=== PATIENT | female | born 1975 | race Caucasian/White ===

== ENCOUNTER 2017-01-16 02:45 | Observation (INO) | payer MEDICAID ==
[~2017-01-16 02:45] MED LIST: METH100I IJ
[2017-01-16] MEDS ORDERED: LACTATED RINGER'S 1,000 ML IV ONE (03:48)
[2017-01-16] MEDS ORDERED: LACTATED RINGER'S 1,000 ML IV SCH (03:48)
[2017-01-16] MEDS ORDERED: TERBUTALINE SULFATE 1 MG/ML 1ML VIAL SC ONE (03:53)
[2017-01-16] MEDS ORDERED: TERBUTALINE SULFATE 1 MG/ML 1ML VIAL SC SCH (04:00)
== END 2017-01-16 04:22 | disposition left against medical advice (07) | DRG 566 ==
LOC: LDRP 02:45
PROVIDERS: ADMIT Specialist; ATTEND Specialist
DX: O62.9 Abnormality of forces of labor, unspecified (principal); O26.893 Other specified pregnancy related conditions, third trimester; O21.2 Late vomiting of pregnancy; R10.9 Unspecified abdominal pain; O09.523 Supervision of elderly multigravida, third trimester; Z3A.39 39 weeks gestation of pregnancy
CPT/HCPCS: 59025; G0378; G0434

== ENCOUNTER 2017-03-01 13:43 | Emergency (ER) | payer MEDICAID ==
[~2017-03-01] VITALS: Ht 154.9 cm; Wt 40.8 kg
[2017-03-01 15:58] LABS: Basophils # (auto) 0 uL; Basophils % (auto) 0.2 % (0.0-2.0); DEFINITIVE VIEW TRANSMISSION; Eosinophils # (auto) 0 uL; Hematocrit 36.8 % (36.0-46.0); Hemoglobin 12.3 g/dL (12.2-16.2); Lymphocytes # (auto) 1.1 uL; Lymphocytes % (auto) 10.1 % (10.0-50.0); Mean Corpuscular Hemoglobin 26.8 pg (28.0-32.0); Mean Corpuscular Hgb Conc. 33.3 g/dL (32.0-36.0); Mean Corpuscular Volume 80.3 fL (80.0-100.0); Mean Platelet Volume 8.3 fL (7.4-10.4); Monocytes # (auto) 1.7 uL; Monocytes % (auto) 15.6 % (0.0-12.0); Neutrophils % (auto) 74.1 % (37.0-80.0); Platelet Count (auto) 323 10^3/uL (140-450); Red Cell Distribution Width 16.9 % (11.6-16.0); White Blood Cell 10.9 10^3/uL (4.4-10.8)
[2017-03-01 16:22] LABS: Urine Bilirubin Negative (Negative); Urine Blood 2+ /uL (Negative); Urine Color Yellow (Yellow); Urine Glucose Normal (Normal); Urine Hyaline Cast FEW /lpf (0 - 2); Urine Ketone Negative (Negative); Urine Mucus FEW (None Seen); Urine Nitrite Negative (Negative); Urine RBC 22 /hpf (0 - 4); Urine Squamous Epithelial Cell MOD /hpf (<5); Urine WBC Clumps PRESENT /hpf (None Seen)
[2017-03-01] MEDS ORDERED: SODIUM CHLORIDE 0.9% 1,000 ML IV ONE (17:45)
[2017-03-01] MEDS ORDERED: ONDANSETRON HCL 4 MG/2 ML VIAL IV ONE (17:45)
[2017-03-01] MEDS ORDERED: KETOROLAC TROMETH 30 MG/ML 1ML VIAL IV ONE (17:45)
[2017-03-01] MEDS ORDERED: cefTRIAXone 1GM/50ML D5W 50 ML IV ONE (17:45)
[2017-03-01 18:42] VITALS: BP 115/79
[2017-03-01] MEDS ORDERED: ACETAMINOPHEN 325 MG TAB PO ONE (19:00)
== END 2017-03-01 19:08 | disposition home or self-care (01) ==
LOC: ER 13:44
DX: N39.0 Urinary tract infection, site not specified (principal); R10.30 Lower abdominal pain, unspecified; F17.210 Nicotine dependence, cigarettes, uncomplicated; F15.10 Other stimulant abuse, uncomplicated; J45.909 Unspecified asthma, uncomplicated; Z88.1 Allergy status to other antibiotic agents
CPT/HCPCS: 36415; 81001; 85025; 96365; 96375; 99284; J0696; J1885; J2405; J7030

== ENCOUNTER 2022-04-01 22:48 | Emergency (ER) | payer MEDICAID ==
[~2022-04-01] VITALS: Ht 167.6 cm; Wt 63.5 kg
[2022-04-01 22:54] VITALS: BP 116/75
== END 2022-04-01 23:11 | disposition left against medical advice (07) ==
LOC: ER 22:48 → EDBD 22:48 → ER 23:11
DX: M25.562 Pain in left knee (principal); Z53.21 Procedure and treatment not carried out due to patient leaving prior to being seen by health care provider; V43.52XA Car driver injured in collision with other type car in traffic accident, initial encounter; Y93.89 Activity, other specified; Y92.488 Other paved roadways as the place of occurrence of the external cause; Y99.8 Other external cause status

== ENCOUNTER 2022-07-15 02:36 | Emergency (ER) | payer MEDICAID ==
[~2022-07-15] VITALS: Ht 165.1 cm; Wt 82.0 kg
[2022-07-15 02:53] VITALS: BP 181/99
[2022-07-15] MEDS ORDERED: LORA-655 PO (15:43)
[2022-07-15] MEDS ORDERED: CIPR-173 PO (15:43)
== END 2022-07-15 03:04 | disposition left against medical advice (07) ==
LOC: EDBD 02:36 → ER 02:40
DX: R10.84 Generalized abdominal pain (principal); Z53.21 Procedure and treatment not carried out due to patient leaving prior to being seen by health care provider

== ENCOUNTER 2022-07-15 04:58 | Emergency (ER) | payer MEDICAID ==
[~2022-07-15] VITALS: Ht 154.9 cm; Wt 55.0 kg
[2022-07-15] MEDS ORDERED: LORazepam 2MG/ML-1ML VIAL IV ONE (08:00)
[2022-07-15] MEDS ORDERED: SODIUM CHLORIDE 0.9% 1,000 ML IVB ONE (08:00)
[2022-07-15 08:59] LABS: Basophils # (auto) 0.1 10 ^3/uL (0-0.2); Basophils % (auto) 0.7 % (0.0-2.0); Eosinophils # (auto) 0.1 10 ^3/uL (0-0.8); Eosinophils % (auto) 0.4 % (0.0-7.0); Hematocrit 46.2 % (36.0-46.0); Hemoglobin 15.3 g/dL (12.2-16.2); Lymphocytes # (auto) 1.5 10 ^3/uL (0.4-5.4); Lymphocytes % (auto) 10.3 % (10.0-50.0); Mean Corpuscular Hemoglobin 29.8 pg (28.0-32.0); Mean Corpuscular Hgb Conc. 33.1 g/dL (32.0-36.0); Monocytes # (auto) 0.7 10 ^3/uL (0-1.3); Monocytes % (auto) 4.8 % (0.0-12.0); Neutrophils % (auto) 83.8 % (37.0-80.0); Nucleated Red Blood Cells % 0.1 %; Red Blood Cells 5.13 10^6/uL (4.0-5.20); Red Cell Distribution Width 13.1 % (11.8-14.3); White Blood Cell 14.3 10^3/uL (4.4-10.8)
[2022-07-15 09:09] LABS: Albumin 3.9 g/dL (3.4-5.0); Calcium 9.1 mg/dL (8.5-10.1); Magnesium 2.5 mg/dL (1.6-2.6); Potassium 3.6 mmol/L (3.5-5.1)
[2022-07-15 09:12] LABS: Total Protein 8.1 g/dL (6.4-8.2)
[2022-07-15 15:19] LABS: Urine Bacteria NONE SEEN /hpf (None Seen); Urine Blood Negative /uL (Negative); Urine Mucus FEW (None Seen); Urine Specific Gravity 1.029 (1.001-1.035); Urine WBC 73 /hpf (0 - 5)
[2022-07-15 15:27] LABS: Amphetamine Screen, Urine POSITIVE (NEGATIVE); Barbiturate Scree,Urine NEGATIVE (NEGATIVE); Benzodiazephine Screen, Urine NEGATIVE (NEGATIVE); Cannabinoid Screen, Urine NEGATIVE (NEGATIVE); Cocaine Screen, Urine NEGATIVE (NEGATIVE); Opiate Scree,Urine NEGATIVE (NEGATIVE); Phencyclidine Screen, Urine NEGATIVE (NEGATIVE)
[2022-07-15] MEDS ORDERED: LORA-655 PO (15:43)
[2022-07-15] MEDS ORDERED: CIPR-173 PO (15:43)
[2022-07-15] MEDS ORDERED: cefTRIAXone 1GM/50ML D5W 50 ML IV ONE (15:45)
[2022-07-15 16:55] VITALS: BP 124/89
== END 2022-07-15 17:08 | disposition home or self-care (01) ==
LOC: ER 04:58
DX: N12 Tubulo-interstitial nephritis, not specified as acute or chronic (principal); F15.10 Other stimulant abuse, uncomplicated; J45.909 Unspecified asthma, uncomplicated; F17.210 Nicotine dependence, cigarettes, uncomplicated; Z79.899 Other long term (current) drug therapy; Z88.1 Allergy status to other antibiotic agents
CPT/HCPCS: 36415; 80053; 80307; 81001; 83690; 83735; 84702; 85025; 96361; 96365; 96375; 99284; J0696; J2060; J7030

== ENCOUNTER 2023-02-11 14:34 | Emergency (ER) | payer MEDICAID ==
[~2023-02-11] VITALS: Ht 154.9 cm; Wt 56.0 kg
[~2023-02-11 14:34] MED LIST changes: +CIPR-173 PO; +LORA-655 PO
[2023-02-11 15:46] VITALS: BP 136/78
== END 2023-02-11 16:05 | disposition home or self-care (01) ==
LOC: ER 14:34
DX: Z00.00 Encounter for general adult medical examination without abnormal findings (principal); J45.909 Unspecified asthma, uncomplicated; F17.210 Nicotine dependence, cigarettes, uncomplicated; F15.10 Other stimulant abuse, uncomplicated; Z88.1 Allergy status to other antibiotic agents; V98.8XXA Other specified transport accidents, initial encounter; Y93.89 Activity, other specified; Y92.89 Other specified places as the place of occurrence of the external cause; Y99.8 Other external cause status

== ENCOUNTER 2023-07-15 22:38 | Emergency (ER) | payer MEDICAID ==
[~2023-07-15] VITALS: Ht 154.9 cm; Wt 54.5 kg
[2023-07-16 01:28] VITALS: BP 125/80; PULSE 113; RESP 20; O2SAT 98
[2023-07-16 04:35] LABS: Amphetamine Screen, Urine Pos (NEGATIVE); Barbiturate Scree,Urine Neg (NEGATIVE); Benzodiazephine Screen, Urine Neg (NEGATIVE); Cocaine Screen, Urine Neg (NEGATIVE); Opiate Scree,Urine Neg (NEGATIVE)
[2023-07-16 04:36] LABS: Cannabinoid Screen, Urine Neg (NEGATIVE); Phencyclidine Screen, Urine Neg (NEGATIVE)
[2023-07-16 04:41] LABS: Urine Bacteria NONE SEEN /hpf (None Seen); Urine Blood Negative /uL (Negative); Urine Clarity HAZY (Clear); Urine Color Yellow (Yellow); Urine Mucus FEW (None Seen); Urine Protein, UAD 1+ (Negative); Urine Specific Gravity 1.032 (1.001-1.035); Urine WBC 6 /hpf (0 - 5); Urine pH 5.5 (5.0-8.0)
== END 2023-07-16 03:57 | disposition left against medical advice (07) ==
LOC: ER 22:38
DX: R10.9 Unspecified abdominal pain (principal); R10.2 Pelvic and perineal pain; M54.9 Dorsalgia, unspecified; M79.605 Pain in left leg; Z53.21 Procedure and treatment not carried out due to patient leaving prior to being seen by health care provider; Z79.899 Other long term (current) drug therapy
CPT/HCPCS: 36415; 80307; 81001; 81025; 84702